=== PATIENT | male | born 1995 | race Caucasian/White ===

== ENCOUNTER → 2017-02-14 | Outpatient (CLI) | payer BC ==
--- NOTE | 2017-02-14 08:41 | Diagnostic Imaging Report ---
PROCEDURE: US Gallbladder. TECHNIQUE: Multiple real-time grayscale images were obtained over the right upper quadrant in various projections. INDICATION: Abdominal pain. COMPARISON: None FINDINGS: There is diffuse hepatic steatosis. No focal hepatic mass is seen. Portions of the left lobe of liver not well demonstrated. The gallbladder appears unremarkable. Common bile duct is not well seen. No gross biliary dilatation is demonstrated. Doppler imaging demonstrates normal hepatopetal flow in the main portal vein. Pancreas is not well-demonstrated. The right kidney measures 11.9 cm in length and appears normal. There is no ascites or sonographic Malik's sign. IMPRESSION: 1. Diffuse hepatic steatosis. 2. No additional abnormality is seen. There is however, limited visualization of the left lobe of the liver, bile duct and pancreas. Dictated by: Dictated on workstation # [id number]
== END ==
LOC: RAD 07:09
PROVIDERS: ATTEND Internal Medicine
DX: K76.0 Fatty (change of) liver, not elsewhere classified (principal); R10.11 Right upper quadrant pain; R11.0 Nausea
CPT/HCPCS: 76705